=== PATIENT | female | born 1965 | race Caucasian/White ===

== ENCOUNTER 2018-06-03 15:25 | Emergency (ER) | payer OTHER ==
[~2018-06-03] VITALS: Ht 167.6 cm; Wt 73.0 kg
[2018-06-03 16:04] LABS: BASOPHILS # (AUTO) 0.1 X10'3 (0-0.2); BASOPHILS % (AUTO) 0.6 % (0-1); EOSINOPHILS # (AUTO) 0.2 X10'3 (0-0.9); EOSINOPHILS % (AUTO) 1.7 % (0-6); HEMATOCRIT 39.7 % (35.0-45.0); HEMOGLOBIN 13.4 g/dl (12.0-16.0); LYMPHOCYTES # (AUTO) 1.6 X10'3 (1.1-4.8); LYMPHOCYTES % (AUTO) 15.1 % (21-51); MEAN CORPUSCULAR HEMOGLOBIN 28.9 PG (27.0-31.0); MEAN CORPUSCULAR HGB CONC 33.7 % (33.0-36.5); MEAN PLATELET VOLUME 7.6 FL (7.4-10.4); MONOCYTES # (AUTO) 0.4 X10'3 (0-0.9); MONOCYTES % (AUTO) 4.1 % (2-12); NEUTROPHILS # (AUTO) 8.4 X10'3 (1.8-7.7); NEUTROPHILS % (AUTO) 78.5 % (42-75); PLATELET COUNT 269 X10'3 (140-440); RED BLOOD COUNT 4.61 X10'6 (4.20-5.60); RED CELL DISTRIBUTION WIDTH 12.9 % (11.5-14.5); WHITE BLOOD COUNT 10.7 X10'3 (4.5-11.0)
[2018-06-03 16:18] LABS: ALANINE AMINOTRANSFERASE 28 U/L (12-78); ALBUMIN 4.1 G/DL (3.4-5.0); ALBUMIN/GLOBULIN RATIO 1.2 (1.1-1.5); ALKALINE PHOSPHATASE 53 IU/L (46-116); ANION GAP 9 (8-16); ASPARTATE AMINO TRANSFERASE 19 U/L (10-37); BILIRUBIN,TOTAL 0.6 MG/DL (0.1-1.0); BLOOD UREA NITROGEN 12 MG/DL (7-18); BUN/CREATININE RATIO 17.6 (6.6-38.0); CALCIUM 8.9 MG/DL (8.5-10.1); CHLORIDE 103 MMOL/L (99-107); CREATININE 0.68 MG/DL (0.40-0.90); GLUCOSE 149 MG/DL (70-104); LIPASE 145 U/L (73-393); POTASSIUM 3.2 MMOL/L (3.5-5.1); SODIUM 139 MMOL/L (135-145); TOTAL CARBON DIOXIDE 27.2 MMOL/L (24-32); TOTAL PROTEIN 7.4 G/DL (6.4-8.2); eGFR > 90 ML/MIN
[2018-06-03 16:21] LABS: CLARITY,URINE SLIGHTLY CLOUDY (Clear); COLOR,URINE YELLOW (Yellow); GLUCOSE, URINE NEGATIVE (Neg); KETONES,URINE 40 mg/dl (Neg); LEUKOCYTE ESTERASE ,URINE NEGATIVE (Neg); NITRITES, URINE NEGATIVE (Neg); OCCULT BLOOD,URINE LARGE (Neg); PH,URINE 6.5 (4.8-8.0); PROTEIN,URINE 30 mg/dl (Neg); URINE HCG NEGATIVE (NEG); UROBILINOGEN,URINE 0.2 E.U/dL (0.2-1.0)
[2018-06-03 16:22] LABS: UA COLLECTION TYPE CLN CATCH MIDSTREAM
[2018-06-03 16:42] LABS: PROTHROMBIN TIME 10.1 SECONDS (9.0-12.0)
[2018-06-03 16:43] LABS: MUCUS STRANDS FEW /LPF (Neg); SQUAMOUS EPITHELIAL CELL,UR MANY /LPF (FEW)
[2018-06-03 16:45] LABS: BACTERIA,URINE FEW /HPF (Neg); RBC,URINE 50-100 /HPF (0-2); WBC,URINE 0-4 /HPF (0-4)
[2018-06-03 16:59] VITALS: BP 140/80
== END 2018-06-03 17:00 | disposition home or self-care (01) ==
LOC: EDBD 15:26 → ER 15:26
DX: R31.9 Hematuria, unspecified (principal); R06.4 Hyperventilation
CPT/HCPCS: 36415; 80053; 81001; 81025; 83690; 85025; 85610; 99284

== ENCOUNTER 2018-10-22 14:50 | Emergency (ER) | payer OTHER ==
[~2018-10-22] VITALS: Ht 167.6 cm; Wt 0.7 kg
[2018-10-22 15:45] LABS: BASOPHILS % (AUTO) 0.2 % (0-1); EOSINOPHILS # (AUTO) 0.1 X10'3 (0-0.9); EOSINOPHILS % (AUTO) 0.6 % (0-6); HEMATOCRIT 38.2 % (35.0-45.0); HEMOGLOBIN 12.7 g/dl (12.0-16.0); LYMPHOCYTES # (AUTO) 1.3 X10'3 (1.1-4.8); LYMPHOCYTES % (AUTO) 8.5 % (21-51); MEAN CORPUSCULAR HEMOGLOBIN 28.5 PG (27.0-31.0); MEAN CORPUSCULAR HGB CONC 33.4 g/dL (33.0-36.5); MEAN CORPUSCULAR VOLUME 85.4 FL (78-98); MEAN PLATELET VOLUME 8.1 FL (7.4-10.4); MONOCYTES # (AUTO) 0.8 X10'3 (0-0.9); MONOCYTES % (AUTO) 5.5 % (2-12); NEUTROPHILS # (AUTO) 12.7 X10'3 (1.8-7.7); NEUTROPHILS % (AUTO) 85.2 % (42-75); PLATELET COUNT 254 X10'3 (140-440); RED BLOOD COUNT 4.47 X10'6 (4.20-5.60); RED CELL DISTRIBUTION WIDTH 13.3 % (11.5-14.5); WHITE BLOOD COUNT 14.9 X10'3 (4.5-11.0)
--- NOTE | 2018-10-22 15:57 | NUR ---
pt came in from clinic per MD, with UA results from clinic. hx kidney stones. Pain for past 24 hr to LLQ that increases with movement and palpitation.
[2018-10-22 16:03] LABS: ALANINE AMINOTRANSFERASE 52 U/L (12-78); ALBUMIN 3.5 G/DL (3.4-5.0); ALBUMIN/GLOBULIN RATIO 0.9 (1.1-1.5); ALKALINE PHOSPHATASE 105 IU/L (46-116); ANION GAP 7 (8-16); ASPARTATE AMINO TRANSFERASE 42 U/L (10-37); BILIRUBIN,TOTAL 0.5 MG/DL (0.1-1.0); BLOOD UREA NITROGEN 11 MG/DL (7-18); BUN/CREATININE RATIO 16.9 (6.6-38.0); CALCIUM 8.9 MG/DL (8.5-10.1); CHLORIDE 104 MMOL/L (99-107); CREATININE 0.65 MG/DL (0.40-0.90); GLUCOSE 99 MG/DL (70-104); POTASSIUM 3.4 MMOL/L (3.5-5.1); PROTHROMBIN TIME 10.4 SECONDS (9.0-12.0); SODIUM 139 MMOL/L (135-145); TOTAL CARBON DIOXIDE 28.1 MMOL/L (24-32); TOTAL PROTEIN 7.4 G/DL (6.4-8.2); eGFR > 90 ML/MIN
[2018-10-22] MEDS ORDERED: ONDA4TAB6 PO (17:48)
[2018-10-22] MEDS ORDERED: HYDR-3965 PO (17:48)
[2018-10-22] MEDS ORDERED: CIPR-259 PO (17:48)
[2018-10-22] MEDS ORDERED: METR500T PO (17:48)
[2018-10-22] MEDS ORDERED: ondansetron 4mg rapidly disintigrating tab PO ONE (17:50)
[2018-10-22] MEDS ORDERED: ciprofloxacin 250mg tablet PO ONE (17:50)
[2018-10-22] MEDS ORDERED: metroNIDAZOLE 500mg tablet PO ONE (17:50)
[2018-10-22 18:42] VITALS: BP 136/62
== END 2018-10-22 18:43 | disposition home or self-care (01) ==
LOC: ER 14:51
DX: K57.92 Diverticulitis of intestine, part unspecified, without perforation or abscess without bleeding (principal)
CPT/HCPCS: 36415; 74176; 80053; 83605; 84145; 85025; 85610; 99284; J3490

== ENCOUNTER 2020-08-29 09:49 | Emergency (ER) | payer OTHER, SELFPAY ==
[~2020-08-29] VITALS: Ht 167.6 cm; Wt 73.6 kg
[~2020-08-29 09:49] MED LIST: ONDA4TAB6 PO
[2020-08-29 11:41] LABS: BASOPHILS % (AUTO) 0.6 % (0-1); EOSINOPHILS # (AUTO) 0.1 X10'3 (0-0.9); EOSINOPHILS % (AUTO) 0.9 % (0-6); HEMATOCRIT 40.4 % (35.0-45.0); HEMOGLOBIN 13.3 g/dl (12.0-16.0); LYMPHOCYTES # (AUTO) 1.8 X10'3 (1.1-4.8); MEAN CORPUSCULAR HEMOGLOBIN 28.6 PG (27.0-31.0); MEAN CORPUSCULAR HGB CONC 32.9 g/dL (33.0-36.5); MEAN CORPUSCULAR VOLUME 86.9 FL (78-98); MONOCYTES # (AUTO) 0.6 X10'3 (0-0.9); MONOCYTES % (AUTO) 7.1 % (2-12); NEUTROPHILS # (AUTO) 5.3 X10'3 (1.8-7.7); NEUTROPHILS % (AUTO) 68.4 % (42-75); PLATELET COUNT 267 X10'3 (140-440); RED BLOOD COUNT 4.65 X10'6 (4.20-5.60); RED CELL DISTRIBUTION WIDTH 13.4 % (11.5-14.5); WHITE BLOOD COUNT 7.7 X10'3 (4.5-11.0)
[2020-08-29 11:57] LABS: ALANINE AMINOTRANSFERASE 22 U/L (12-78); ALBUMIN 3.7 G/DL (3.4-5.0); ALBUMIN/GLOBULIN RATIO 1.2 (1.1-1.5); ALKALINE PHOSPHATASE 50 IU/L (46-116); ANION GAP 5 (8-16); ASPARTATE AMINO TRANSFERASE 17 U/L (10-37); BILIRUBIN,TOTAL 0.5 MG/DL (0.1-1.0); BLOOD UREA NITROGEN 11 MG/DL (7-18); BUN/CREATININE RATIO 18.6 (6.6-38.0); CALCIUM 8.1 MG/DL (8.5-10.1); CHLORIDE 106 MMOL/L (99-107); CREATININE 0.59 MG/DL (0.40-0.90); GLUCOSE 103 MG/DL (70-104); POTASSIUM 3.7 MMOL/L (3.5-5.1); SODIUM 140 MMOL/L (135-145); TOTAL CARBON DIOXIDE 28.9 MMOL/L (24-32); TOTAL PROTEIN 6.9 G/DL (6.4-8.2); eGFR > 90 ML/MIN
[2020-08-29 12:43] VITALS: BP 137/72
== END 2020-08-29 12:39 | disposition home or self-care (01) ==
LOC: ER 09:51
DX: R20.0 Anesthesia of skin (principal); R42 Dizziness and giddiness; R53.83 Other fatigue; Z87.442 Personal history of urinary calculi; Z72.89 Other problems related to lifestyle; Z79.899 Other long term (current) drug therapy
CPT/HCPCS: 36415; 70450; 80053; 85025; 99284

== ENCOUNTER 2021-03-19 16:15 | Emergency (ER) | payer OTHER ==
[~2021-03-19] VITALS: Ht 167.6 cm; Wt 70.0 kg
[2021-03-19 17:11] VITALS: BP 110/80
--- NOTE | 2021-03-19 19:26 | NUR ---
PER REGISTRATION PT HAS LEFT THE LOBBY
== END 2021-03-19 21:10 | disposition left against medical advice (07) ==
LOC: ER 16:16
DX: N20.0 Calculus of kidney (principal); R10.9 Unspecified abdominal pain; Z53.21 Procedure and treatment not carried out due to patient leaving prior to being seen by health care provider

== ENCOUNTER 2023-03-26 12:08 | Emergency (ER) | payer OTHER ==
[~2023-03-26] VITALS: Ht 167.6 cm; Wt 67.8 kg
[2023-03-26 12:12] VITALS: BP 120/47; PULSE 82; RESP 16; TEMP 97.3; O2SAT 97
== END 2023-03-26 13:28 | disposition left against medical advice (07) ==
LOC: ER 12:08
DX: R10.9 Unspecified abdominal pain (principal); R30.0 Dysuria; Z53.21 Procedure and treatment not carried out due to patient leaving prior to being seen by health care provider
CPT/HCPCS: 99281

== ENCOUNTER 2023-04-12 09:36 | Inpatient (IN) | payer OTHER ==
[~2023-04-12] VITALS: Ht 167.6 cm; Wt 146.0 kg
--- NOTE | 2023-04-12 09:53 | NUR ---
no food since last night. last water 0700
[2023-04-12 10:20] LABS: BASOPHILS % (AUTO) 0.2 % (0-1); EOSINOPHILS % (AUTO) 0.1 % (0-6); HEMATOCRIT 37.3 % (35.0-45.0); HEMOGLOBIN 12.3 g/dl (12.0-16.0); LYMPHOCYTES # (AUTO) 0.9 X10'3 (1.1-4.8); LYMPHOCYTES % (AUTO) 4.9 % (21-51); MEAN CORPUSCULAR HEMOGLOBIN 28.7 PG (27.0-31.0); MEAN CORPUSCULAR HGB CONC 33.1 g/dL (33.0-36.5); MEAN CORPUSCULAR VOLUME 86.6 FL (78-98); MEAN PLATELET VOLUME 7.8 FL (7.4-10.4); MONOCYTES # (AUTO) 1.3 X10'3 (0-0.9); MONOCYTES % (AUTO) 6.8 % (2-12); PLATELET COUNT 373 X10'3 (140-440); RED CELL DISTRIBUTION WIDTH 13.6 % (11.5-14.5); WHITE BLOOD COUNT 19.2 X10'3 (4.5-11.0)
[2023-04-12] MEDS ORDERED: iohexol 300mg/ml 100ml inj. ONE (10:36)
[2023-04-12 10:37] LABS: ALANINE AMINOTRANSFERASE 31 U/L (12-78); ALBUMIN 3.4 G/DL (3.4-5.0); ALBUMIN/GLOBULIN RATIO 0.8 (1.1-1.5); ALKALINE PHOSPHATASE 278 IU/L (46-116); ANION GAP 8 (8-16); ASPARTATE AMINO TRANSFERASE 26 U/L (10-37); BILIRUBIN,TOTAL 1.1 MG/DL (0.1-1.0); BLOOD UREA NITROGEN 12 MG/DL (7-18); BUN/CREATININE RATIO 15.6 (10.0-20.0); CALCIUM 9.4 MG/DL (8.5-10.1); CHLORIDE 99 MMOL/L (99-107); CREATININE 0.77 MG/DL (0.40-0.90); GLUCOSE 111 MG/DL (70-104); LIPASE 86 U/L (73-393); POTASSIUM 3.7 MMOL/L (3.5-5.1); SODIUM 135 MMOL/L (135-145); TOTAL CARBON DIOXIDE 28.4 MMOL/L (24-32); TOTAL PROTEIN 7.9 G/DL (6.4-8.2); eCRCL 76 ML/MIN; eGFR 78 ML/MIN
[2023-04-12] MEDS ORDERED: normal saline 1000ML IV soln IVB ONE (11:55)
[2023-04-12 12:15] LABS: URINE HCG NEGATIVE (NEG)
--- NOTE | 2023-04-12 12:16 | NUR ---
pt refused NS bolus at this time, primary RN was advised
[2023-04-12 12:17] LABS: BILIRUBIN,URINE SMALL (Neg); CLARITY,URINE SLIGHTLY CLOUDY (Clear); COLOR,URINE YELLOW (Yellow); GLUCOSE, URINE NEGATIVE (Neg); KETONES,URINE 40 mg/dl (Neg); LEUKOCYTE ESTERASE ,URINE NEGATIVE (Neg); NITRITES, URINE NEGATIVE (Neg); OCCULT BLOOD,URINE SMALL (Neg); PH,URINE 6.5 (4.8-8.0); PROTEIN,URINE TRACE mg/dl (Neg)
[2023-04-12 12:20] LABS: UA COLLECTION TYPE CLN CATCH MIDSTREAM
[2023-04-12 12:24] LABS: BACTERIA,URINE 1+ /HPF (Neg); RBC,URINE 0-2 /HPF (0-2); SQUAMOUS EPITHELIAL CELL,UR MODERATE /LPF (FEW); WBC CLUMPS,URINE FEW /HPF (NEGATIVE)
[2023-04-12] MEDS ORDERED: piperacillin/tazo 3.375gm/50ml 50 ML IV ONE (13:20)
[2023-04-12] MEDS ORDERED: VALA500T PO (14:03)
[2023-04-12] MEDS ORDERED: ACET325T55 PO (14:04)
[2023-04-12] MEDS ORDERED: IBUP-1984 PO (14:05)
[2023-04-12] MEDS ORDERED: diatr meglu/diatrizoate 30ml oral sol.-(3 dose) bottle ONE (14:21)
[2023-04-12] MEDS ORDERED: magnesium hydroxide 30ml (MOM) UD suspension PO PRN (14:25)
[2023-04-12] MEDS ORDERED: mag hydrox/Alum hydrox/simeth 30ml oral suspension PO PRN (14:25)
[2023-04-12] MEDS ORDERED: magnesium Cl slow-release 64mg tablet PO PRN (14:25)
[2023-04-12] MEDS ORDERED: magnesium 4gm in 100ml NS 100 ML IV PRN (14:25)
[2023-04-12] MEDS ORDERED: ondansetron/PF 4mg/2ml inj IV PRN (14:25)
[2023-04-12] MEDS ORDERED: normal saline 1000ml 1,000 ML IV SCH (14:25)
[2023-04-12] MEDS ORDERED: magnesium 2GM in 50ml NS 50 ML IV PRN (14:25)
[2023-04-12] MEDS ORDERED: potassium Cl 40MEQ/1/2NS 520ml 520 ML IV PRN (14:25)
[2023-04-12] MEDS ORDERED: potassium Cl 20 mEq SR tablet PO PRN (14:25)
[2023-04-12 17:07] LABS: MAGNESIUM 1.9 MG/DL (1.5-2.4)
--- NOTE | 2023-04-12 18:35 | NUR ---
Patient in room PCU 3014. I have received report from SOHAN Dumont and had the opportunity to ask questions and assume patient care.
--- NOTE | 2023-04-12 18:55 | NUR ---
pt arrived to floor in wheelchair. settled into bed. oriented to room. call light in reach.
[2023-04-12 20:00] VITALS: BP 138/70; PULSE 94; RESP 16; TEMP 100.2; O2SAT 98
[2023-04-12] MEDS: docusate sod 100mg capsule PO SCH (20:00)
[2023-04-12] MEDS: K and/or MAG REPLACEMENT MC SCH (20:00)
[2023-04-12 20:20] VITALS: RESP 16; O2SAT 98
[2023-04-12 22:00] VITALS: BP 131/72; PULSE 90; RESP 16; TEMP 98.9; O2SAT 97
[2023-04-12] MEDS: piperacillin/tazo 4.5gm/100ml 100 ML IV SCH (22:27)
[2023-04-13] VITALS (7 sets, daily range): BP systolic 121–142; BP diastolic 62–82; PULSE 61–89; RESP 14–17; TEMP 96.8–99.3; O2SAT 95–99
[2023-04-13] MEDS: piperacillin/tazo 4.5gm/100ml 100 ML IV SCH ×3 (05:44→22:24)
[2023-04-13 06:19] LABS: BASOPHILS % (AUTO) 0.3 % (0-1); EOSINOPHILS # (AUTO) 0.1 X10'3 (0-0.9); EOSINOPHILS % (AUTO) 0.4 % (0-6); HEMATOCRIT 32.6 % (35.0-45.0); HEMOGLOBIN 10.9 g/dl (12.0-16.0); LYMPHOCYTES # (AUTO) 1.8 X10'3 (1.1-4.8); LYMPHOCYTES % (AUTO) 14.1 % (21-51); MEAN CORPUSCULAR HEMOGLOBIN 28.7 PG (27.0-31.0); MEAN CORPUSCULAR HGB CONC 33.4 g/dL (33.0-36.5); MEAN CORPUSCULAR VOLUME 85.8 FL (78-98); MEAN PLATELET VOLUME 8.2 FL (7.4-10.4); MONOCYTES # (AUTO) 1.2 X10'3 (0-0.9); MONOCYTES % (AUTO) 9.6 % (2-12); NEUTROPHILS # (AUTO) 9.6 X10'3 (1.8-7.7); NEUTROPHILS % (AUTO) 75.6 % (42-75); PLATELET COUNT 318 X10'3 (140-440); RED CELL DISTRIBUTION WIDTH 13.7 % (11.5-14.5); WHITE BLOOD COUNT 12.8 X10'3 (4.5-11.0)
[2023-04-13 06:23] LABS: ALBUMIN 2.7 G/DL (3.4-5.0); ANION GAP 8 (8-16); BLOOD UREA NITROGEN 9 MG/DL (7-18); BUN/CREATININE RATIO 13.4 (10.0-20.0); CALCIUM 8.9 MG/DL (8.5-10.1); CHLORIDE 102 MMOL/L (99-107); CREATININE 0.67 MG/DL (0.40-0.90); GLUCOSE 109 MG/DL (70-104); MAGNESIUM 1.8 MG/DL (1.5-2.4); POTASSIUM 3.5 MMOL/L (3.5-5.1); SODIUM 136 MMOL/L (135-145); TOTAL CARBON DIOXIDE 26.4 MMOL/L (24-32); eCRCL 88 ML/MIN; eGFR > 90 ML/MIN
--- NOTE | 2023-04-13 06:35 | NUR ---
Problems reprioritized. Patient report given, questions answered & plan of care reviewed with SOHAN Wilkins.
[2023-04-13] MEDS: K and/or MAG REPLACEMENT MC SCH ×2 (07:27→20:00)
[2023-04-13] MEDS: docusate sod 100mg capsule PO SCH ×2 (08:00→20:00)
[2023-04-14] VITALS (17 sets, daily range): BP systolic 100–147; BP diastolic 64–95; PULSE 67–94; RESP 16–22; TEMP 97.7–98.7; O2SAT 95–100
[2023-04-14] MEDS: piperacillin/tazo 4.5gm/100ml 100 ML IV SCH ×3 (05:51→21:42)
[2023-04-14] MEDS: docusate sod 100mg capsule PO SCH ×2 (06:16→20:00)
--- NOTE | 2023-04-14 06:17 | NUR ---
Problems reprioritized. Patient report given, questions answered & plan of care reviewed with Svitlana PARRY.
--- NOTE | 2023-04-14 06:41 | NUR ---
Patient in room PCU 3014. I have received report from evita tuttle and had the opportunity to ask questions and assume patient care.
[2023-04-14 07:30] LABS: BASOPHILS # (AUTO) 0.1 X10'3 (0-0.2); BASOPHILS % (AUTO) 0.7 % (0-1); EOSINOPHILS # (AUTO) 0.1 X10'3 (0-0.9); EOSINOPHILS % (AUTO) 0.8 % (0-6); HEMATOCRIT 34.3 % (35.0-45.0); HEMOGLOBIN 11.4 g/dl (12.0-16.0); LYMPHOCYTES # (AUTO) 1.3 X10'3 (1.1-4.8); LYMPHOCYTES % (AUTO) 11.8 % (21-51); MEAN CORPUSCULAR HEMOGLOBIN 28.7 PG (27.0-31.0); MEAN CORPUSCULAR HGB CONC 33.2 g/dL (33.0-36.5); MEAN CORPUSCULAR VOLUME 86.5 FL (78-98); MEAN PLATELET VOLUME 8.5 FL (7.4-10.4); MONOCYTES # (AUTO) 1.2 X10'3 (0-0.9); MONOCYTES % (AUTO) 10.5 % (2-12); NEUTROPHILS # (AUTO) 8.4 X10'3 (1.8-7.7); NEUTROPHILS % (AUTO) 76.2 % (42-75); PLATELET COUNT 330 X10'3 (140-440); RED BLOOD COUNT 3.96 X10'6 (4.20-5.60); RED CELL DISTRIBUTION WIDTH 13.6 % (11.5-14.5); WHITE BLOOD COUNT 11.1 X10'3 (4.5-11.0)
[2023-04-14 07:31] LABS: ALBUMIN 2.8 G/DL (3.4-5.0); ANION GAP 8 (8-16); BLOOD UREA NITROGEN 8 MG/DL (7-18); BUN/CREATININE RATIO 12.7 (10.0-20.0); CHLORIDE 100 MMOL/L (99-107); CREATININE 0.63 MG/DL (0.40-0.90); GLUCOSE 95 MG/DL (70-104); MAGNESIUM 1.9 MG/DL (1.5-2.4); POTASSIUM 3.4 MMOL/L (3.5-5.1); SODIUM 134 MMOL/L (135-145); TOTAL CARBON DIOXIDE 25.6 MMOL/L (24-32); eCRCL 93 ML/MIN; eGFR > 90 ML/MIN
[2023-04-14] MEDS: K and/or MAG REPLACEMENT MC SCH ×2 (08:00→20:46)
[2023-04-14 09:04] LABS: C DIFF ANTIGEN NEGATIVE (NEGATIVE); C DIFF SPECIMEN=DIARRHEA? ACCEPTABLE; C DIFFICILE TOXINS A&B NEGATIVE (Neg)
[2023-04-14] MEDS ORDERED: fentaNYL/PF 50MCG/1 ML 2ML syringe ONE (15:04)
[2023-04-14] MEDS ORDERED: midazolam 1 mg/ML 2ml injection ONE (15:04)
[2023-04-14] MEDS ORDERED: LIDOcaine 1% (10mg/ml) 2ml vial ONE (15:29)
--- NOTE | 2023-04-14 15:55 | NUR ---
Malnutrition consult : Pt admit for abd pain and diverticulosis/diverticulitis per with large right pelic diverticular abscess likely secondary to perforated colon per EMR. Per RN malnutrition screen pt reports 14-23 pound wt loss and a decrease in appetite. Scaled 70kg (154 pounds) this admit and a prior wt hx of 70kg on 03/19/23 per EMR appears to be overall a stable wt in the last month. RD attempted to see pt today however pt was not in room during time of visit thus unable to obtain a weight hx or intake hx at this time. Pt is currently on a clear liquid diet with documented two refusals of clears. Additionally pt has mild weakness and no edema. Will continue to follow and re-attempt interview. Addendum: 04/14/23 at [address] Amended: Links added.
[2023-04-14] MEDS ORDERED: HYDROmorphone inj. 0.5 MG/0.5 ML DISP.SYRIN IV ONE (16:00)
--- NOTE | 2023-04-14 16:05 | NUR ---
pt transferred from angio, vss, pain meds given
[2023-04-14] MEDS ORDERED: HYDROcodone/acetaminophen 10/325mg tab PO PRN (18:00)
[2023-04-14] MEDS: acetaminophen 325mg tablet PO PRN (21:46)
[2023-04-15] VITALS (8 sets, daily range): BP systolic 130–167; BP diastolic 67–95; PULSE 55–83; RESP 14–19; TEMP 97.7–98.8; O2SAT 96–100
[2023-04-15] MEDS: piperacillin/tazo 4.5gm/100ml 100 ML IV SCH ×3 (05:49→22:40)
--- NOTE | 2023-04-15 06:49 | NUR ---
Problems reprioritized. Patient report given, questions answered & plan of care reviewed with jeannie rn.
--- NOTE | 2023-04-15 06:50 | NUR ---
Patient in room PCU 3014. I have received report from SOHAN Shane and had the opportunity to ask questions and assume patient care.
[2023-04-15 07:21] LABS: BASOPHILS # (AUTO) 0.1 X10'3 (0-0.2); BASOPHILS % (AUTO) 0.6 % (0-1); EOSINOPHILS # (AUTO) 0.1 X10'3 (0-0.9); EOSINOPHILS % (AUTO) 0.9 % (0-6); HEMATOCRIT 34.5 % (35.0-45.0); HEMOGLOBIN 11.5 g/dl (12.0-16.0); LYMPHOCYTES # (AUTO) 1.4 X10'3 (1.1-4.8); LYMPHOCYTES % (AUTO) 13.4 % (21-51); MEAN CORPUSCULAR HEMOGLOBIN 28.4 PG (27.0-31.0); MEAN CORPUSCULAR HGB CONC 33.3 g/dL (33.0-36.5); MEAN CORPUSCULAR VOLUME 85.2 FL (78-98); MEAN PLATELET VOLUME 8.6 FL (7.4-10.4); MONOCYTES # (AUTO) 1.1 X10'3 (0-0.9); MONOCYTES % (AUTO) 10.8 % (2-12); NEUTROPHILS # (AUTO) 7.6 X10'3 (1.8-7.7); NEUTROPHILS % (AUTO) 74.3 % (42-75); PLATELET COUNT 342 X10'3 (140-440); RED BLOOD COUNT 4.05 X10'6 (4.20-5.60); RED CELL DISTRIBUTION WIDTH 13.3 % (11.5-14.5); WHITE BLOOD COUNT 10.2 X10'3 (4.5-11.0)
[2023-04-15 08:13] LABS: BLOOD UREA NITROGEN 10 MG/DL (7-18); MAGNESIUM 1.8 MG/DL (1.5-2.4); eGFR > 90 ML/MIN
[2023-04-15] MEDS ORDERED: docusate sod 100mg capsule PO PRN (08:50)
[2023-04-15 09:45] LABS: ANION GAP 14 (8-16); POTASSIUM 3.1 MMOL/L (3.5-5.1); TOTAL CARBON DIOXIDE 22.7 MMOL/L (24-32); eCRCL 93 ML/MIN
[2023-04-15] MEDS: K and/or MAG REPLACEMENT MC SCH ×2 (09:48→20:00)
[2023-04-15 09:50] LABS: GLUCOSE 95 MG/DL (70-104)
[2023-04-15 09:51] LABS: ALBUMIN 2.7 G/DL (3.4-5.0); BUN/CREATININE RATIO 15.9 (10.0-20.0); CHLORIDE 101 MMOL/L (99-107); CREATININE 0.63 MG/DL (0.40-0.90); SODIUM 138 MMOL/L (135-145)
[2023-04-15] MEDS: potassium Cl 20 mEq SR tablet PO PRN ×3 (11:17→22:34)
[2023-04-15] MEDS: acetaminophen 325mg tablet PO PRN ×2 (11:17→22:36)
--- NOTE | 2023-04-15 13:13 | NUR ---
Malnutrition consult : Pt admit for abd pain and diverticulosis/diverticulitis with large right pelvic diverticular abscess likely secondary to perforated colon per EMR. Per RN malnutrition screen pt reports 14-23 pound wt loss and a decrease in appetite. Scaled 70kg (154 pounds) this admit and a prior wt hx of 67 kg on 03/26/23 per EMR suggest possible wt increase in the last 2.5 weeks but overall stable. Pt seen at bedside today states shes lost weight in the last month and UBW is 156 pounds. Noted current scaled wt this admit of 70kg (154 pounds) is two pounds less than UBW , wt hx in EMR on 03/20/21 suggest overall stable and close to reported UBW thus suspect reported wt loss amounts is inaccurate. Pt reports ebbs and flows of appetite and intake as diverticulitis symptoms flare up. Noted pt had two chicken soups/ broth cups from "[employer]" at bedside. Pt appeared thin though states she has been thin most of her life. Pt did not have physical signs of muscle or fat wasting at this time. Additionally pt did not have edema. Pt does not meet a minimum of two malnutrition criteria at this time. Will continue to monitor. Addendum: 04/15/23 at [address] Amended: Links added.
--- NOTE | 2023-04-15 18:15 | NUR ---
Problems reprioritized. Patient report given, questions answered & plan of care reviewed with SOHAN Mendosa.
[2023-04-16] VITALS (8 sets, daily range): BP systolic 113–142; BP diastolic 68–83; PULSE 70–82; RESP 12–18; TEMP 97.7–99.4; O2SAT 94–100
[2023-04-16] MEDS: piperacillin/tazo 4.5gm/100ml 100 ML IV SCH ×3 (05:42→22:01)
--- NOTE | 2023-04-16 06:40 | NUR ---
Patient in room PCU 3014. I have received report from SOHAN Mendosa and had the opportunity to ask questions and assume patient care.
[2023-04-16 06:46] LABS: BASOPHILS # (AUTO) 0.1 X10'3 (0-0.2); BASOPHILS % (AUTO) 0.9 % (0-1); EOSINOPHILS # (AUTO) 0.1 X10'3 (0-0.9); EOSINOPHILS % (AUTO) 1.3 % (0-6); HEMATOCRIT 34.1 % (35.0-45.0); HEMOGLOBIN 11.5 g/dl (12.0-16.0); LYMPHOCYTES # (AUTO) 1.2 X10'3 (1.1-4.8); LYMPHOCYTES % (AUTO) 10.6 % (21-51); MEAN CORPUSCULAR HEMOGLOBIN 28.9 PG (27.0-31.0); MEAN CORPUSCULAR HGB CONC 33.8 g/dL (33.0-36.5); MEAN CORPUSCULAR VOLUME 85.5 FL (78-98); MEAN PLATELET VOLUME 8.1 FL (7.4-10.4); MONOCYTES % (AUTO) 9.3 % (2-12); NEUTROPHILS # (AUTO) 8.5 X10'3 (1.8-7.7); NEUTROPHILS % (AUTO) 77.9 % (42-75); PLATELET COUNT 338 X10'3 (140-440); RED BLOOD COUNT 3.99 X10'6 (4.20-5.60); RED CELL DISTRIBUTION WIDTH 13.8 % (11.5-14.5); WHITE BLOOD COUNT 10.9 X10'3 (4.5-11.0)
[2023-04-16 07:03] LABS: ALBUMIN 2.8 G/DL (3.4-5.0); ANION GAP 11 (8-16); BLOOD UREA NITROGEN 5 MG/DL (7-18); CALCIUM 8.9 MG/DL (8.5-10.1); CHLORIDE 101 MMOL/L (99-107); CREATININE 0.71 MG/DL (0.40-0.90); GLUCOSE 101 MG/DL (70-104); MAGNESIUM 1.8 MG/DL (1.5-2.4); POTASSIUM 3.4 MMOL/L (3.5-5.1); SODIUM 137 MMOL/L (135-145); TOTAL CARBON DIOXIDE 25.3 MMOL/L (24-32); eCRCL 83 ML/MIN; eGFR 85 ML/MIN
[2023-04-16] MEDS: K and/or MAG REPLACEMENT MC SCH ×2 (07:23→19:36)
[2023-04-16] MEDS: potassium Cl 20 mEq SR tablet PO PRN ×3 (09:20→17:37)
[2023-04-16] MEDS: acetaminophen 325mg tablet PO PRN (22:01)
[2023-04-17 02:00] VITALS: BP 121/66; PULSE 72; RESP 16; TEMP 98.3; O2SAT 97
[2023-04-17] MEDS: piperacillin/tazo 4.5gm/100ml 100 ML IV SCH (05:35)
--- NOTE | 2023-04-17 06:50 | NUR ---
Problems reprioritized. Patient report given, questions answered & plan of care reviewed with SOHAN Cervantes.
--- NOTE | 2023-04-17 07:07 | NUR ---
Report completed with Mayra RN. Patient awake and talking
[2023-04-17 07:20] VITALS: BP 140/76; PULSE 80; RESP 15; TEMP 98.2; O2SAT 98
[2023-04-17 07:29] LABS: BASOPHILS # (AUTO) 0.1 X10'3 (0-0.2); BASOPHILS % (AUTO) 0.4 % (0-1); EOSINOPHILS # (AUTO) 0.2 X10'3 (0-0.9); EOSINOPHILS % (AUTO) 1.2 % (0-6); HEMATOCRIT 35.7 % (35.0-45.0); HEMOGLOBIN 11.8 g/dl (12.0-16.0); LYMPHOCYTES # (AUTO) 1.2 X10'3 (1.1-4.8); LYMPHOCYTES % (AUTO) 9.2 % (21-51); MEAN CORPUSCULAR HEMOGLOBIN 28.2 PG (27.0-31.0); MEAN CORPUSCULAR HGB CONC 33.2 g/dL (33.0-36.5); MEAN CORPUSCULAR VOLUME 85.1 FL (78-98); MEAN PLATELET VOLUME 7.9 FL (7.4-10.4); MONOCYTES % (AUTO) 7.5 % (2-12); NEUTROPHILS # (AUTO) 10.4 X10'3 (1.8-7.7); NEUTROPHILS % (AUTO) 81.7 % (42-75); PLATELET COUNT 383 X10'3 (140-440); RED BLOOD COUNT 4.19 X10'6 (4.20-5.60); RED CELL DISTRIBUTION WIDTH 13.7 % (11.5-14.5); WHITE BLOOD COUNT 12.8 X10'3 (4.5-11.0)
[2023-04-17 07:42] LABS: ALBUMIN 2.7 G/DL (3.4-5.0); ANION GAP 10 (8-16); BLOOD UREA NITROGEN 5 MG/DL (7-18); BUN/CREATININE RATIO 8.1 (10.0-20.0); CHLORIDE 102 MMOL/L (99-107); CREATININE 0.62 MG/DL (0.40-0.90); GLUCOSE 108 MG/DL (70-104); POTASSIUM 3.7 MMOL/L (3.5-5.1); SODIUM 136 MMOL/L (135-145); TOTAL CARBON DIOXIDE 24.4 MMOL/L (24-32); eCRCL 95 ML/MIN; eGFR > 90 ML/MIN
[2023-04-17] MEDS: K and/or MAG REPLACEMENT MC SCH (08:00)
[2023-04-17 11:56] VITALS: BP 114/72; PULSE 95; RESP 20; TEMP 97.6; O2SAT 97
[2023-04-17] MEDS ORDERED: AMOX-580 PO (12:28)
[2023-04-17] MEDS ORDERED: HYDR-3965 PO (12:35)
--- NOTE | 2023-04-17 15:00 | NUR ---
Patient DC home with family. IV removed, canula in tact. Med Scips given to patient written out and faxed by MD. Drain education and supplies given to patient, reviewed diet with pamphlet sent with patient. Follow up instructions reviewed. All eduction completed and verbal acknowledgement of understanding completed. Patient is aware of S/S of infection and to report to ER if any issues come about.
== END 2023-04-17 14:55 | disposition home or self-care (01) | DRG 392 ==
LOC: ER 09:37 → ED HOLD 14:52 → PCU 3S 18:55
PROVIDERS: ADMIT Internal Medicine; ATTEND Internal Medicine
PROC: BW211ZZ Computerized Tomography (CT Scan) of Abdomen and Pelvis using Low Osmolar Contrast (ICD-10-PCS; 2023-04-12)
PROC: 0W9J30Z Drainage of Pelvic Cavity with Drainage Device, Percutaneous Approach (ICD-10-PCS; principal; 2023-04-14)
DX: K57.20 Diverticulitis of large intestine with perforation and abscess without bleeding (principal); N20.0 Calculus of kidney; B96.20 Unspecified Escherichia coli [E. coli] as the cause of diseases classified elsewhere; B96.1 Klebsiella pneumoniae [K. pneumoniae] as the cause of diseases classified elsewhere; B95.4 Other streptococcus as the cause of diseases classified elsewhere; Z87.442 Personal history of urinary calculi
CPT/HCPCS: 27040; 36415; 74176; 74177; 77012; 80048; 80053; 81001; 81025; 83605; 83690; 83735; 84132; 85025; 87040; 87070; 87077; 87081; 87088; 87186; 87324; 87449; 96365; 99152; 99153; 99285; A4421; A4615; A6258; C1729; C1769; G0378; J1170; J2250; J2543; J3010; J3490; J7030; J7040; Q9963; Q9967